=== PATIENT | male | born 1970 | race Caucasian/White ===

== ENCOUNTER 2018-03-21 16:24 | Emergency (ER) | payer OTHER ==
[~2018-03-21] VITALS: Ht 177.8 cm; Wt 95.5 kg
[~2018-03-21 16:24] MED LIST: CIPRO XR500 MG PO; CITRATE OF MAG300 ML PO; FLOMAX 0.40.4 MG/CAP PO; LORTAB 5/500 501 TAB; MOTRIN 800800 MG/TAB PO; NO HOME MEDICATIONS; NORCO 325 MG-51 TAB PO; ROXICODONE 55 MG/TAB PO; ZOFRAN ODT4 MG PO
[2018-03-21 16:28] VITALS: TEMP 98.6
[2018-03-21 17:22] LABS: BASO # 0.1 (0.0-0.2); BASO % 0.6 % (0.0-2.0); EOS # 0.2 (0.0-0.7); EOS % 1.5 % (0-4.0); GRAN # 8.6 (1.4-6.5); GRAN % 73.1 % (42.2-75.2); HEMOGLOBIN 16.8 g/dl (13.5-18.0); LYMPH # 2.2 (1.2-3.4); LYMPH % 18.3 % (20.0-51.0); MEAN CELL VOLUME 84 fl (80.0-100.0); MEAN CORPUSCULAR HEMOGLOBIN 29 pg (27.0-31.0); MEAN CORPUSCULAR HGB CONC 34 g/dl (33.0-37.0); MEAN PLATELET VOLUME 10.1 fl (7.4-10.4); MONO # 0.7 (0.1-0.6); MONO % 5.6 % (1.7-9.3); PLATELET COUNT 223 K/mm3 (130-400); RED BLOOD COUNT 5.81 M/mm3 (4.20-5.60); REDCELL DISTRIBUTION WIDTH-CV 12.5 % (11.5-14.5)
[2018-03-21 17:34] LABS: ALANINE AMINOTRANSFERASE 50 U/L (21-72); ALBUMIN 4.4 gm/dL (3.5-5.0); ALKALINE PHOSPHATASE 107 U/L (50-136); ANION GAP 12 mmol/L (7-16); AST,SGOT 27 U/L (15-37); BILIRUBIN,TOTAL 0.5 mg/dL (0.0-1.0); BLOOD UREA NITROGEN 23 mg/dL (9-20); C-REACTIVE PROTEIN 1.1 mg/dL (0.0-0.9); CALCIUM 10.2 mg/dL (8.4-10.2); CARBON DIOXIDE 30 mmol/L (22-30); CHLORIDE 100 mmol/L (98-107); CREATININE, serum 1.04 mg/dL (0.66-1.25); GLUCOSE 152 mg/dL (74-106); LIPASE 203 U/L (23-300); POTASSIUM 4.1 mmol/L (3.4-5.0); SODIUM 141 mmol/L (137-145)
[2018-03-21 17:50] LABS: TROPONIN-I < 0.012 ng/mL (0.000-0.034)
[2018-03-21 17:57] LABS: COLLECTION METHOD CLEAN CATCH
[2018-03-21 18:08] LABS: MUCOUS Present /lpf; PH 5 (5-8); SQUAMOUS EPITHELIAL None Seen /hpf; URINE APPEARANCE Clear; URINE BACTERIA None Seen /hpf; URINE BILIRUBIN Negative (NEGATIVE); URINE BLOOD 2+ (NEGATIVE); URINE COLOR Yellow; URINE GLUCOSE Negative (NEGATIVE); URINE KETONE Negative (NEGATIVE); URINE LEUKOCYTE ESTERASE Negative (NEGATIVE); URINE NITRATE Negative (NEGATIVE); URINE PROTEIN(semi-quant) 2+ (NEGATIVE); URINE RBC 0-2 /hpf
[2018-03-21 18:47] VITALS: BP 114/71
[2018-03-21] MEDS ORDERED: ZOFRAN 4MG T4 MG/TAB PO (19:24)
[2018-03-21] MEDS ORDERED: NORCO 325 MG-51 TAB PO (19:24)
[2018-03-21 19:30] VITALS: PULSE 73
== END 2018-03-21 19:50 | disposition home or self-care (01) ==
LOC: COL.ER 16:24
PROVIDERS: Emergency Medicine
DX: K80.50 Calculus of bile duct without cholangitis or cholecystitis without obstruction (principal); K80.20 Calculus of gallbladder without cholecystitis without obstruction; Z87.442 Personal history of urinary calculi
CPT/HCPCS: J1170; J2405; J7030; Q9967

== ENCOUNTER 2018-03-25 08:08 | Day surgery (SDC) | payer OTHER ==
[2018-03-25] VITALS (7 sets, daily range): BP systolic 109–119; BP diastolic 58–76; PULSE 63–81; TEMP 98.2
[~2018-03-25] VITALS: Ht 177.8 cm; Wt 92.7 kg
[~2018-03-25 08:08] MED LIST changes: +ZOFRAN 4MG T4 MG/TAB PO
== END 2018-03-25 13:30 | disposition home or self-care (01) ==
LOC: SDCO 08:08
DX: K80.12 Calculus of gallbladder with acute and chronic cholecystitis without obstruction (principal); Z88.5 Allergy status to narcotic agent
CPT/HCPCS: J0690; J1100; J1170; J2405; J2550; J2704; J2710; J3010; J7120